=== PATIENT | male | born 1950 | race Caucasian/White ===

== ENCOUNTER → 2021-08-27 10:50 | Outpatient (CLI) | payer MEDICARE, OTHER, SELFPAY ==
[2021-08-27 11:44] LABS: BUN Creatinine Ratio 20.5 (6-22); Blood Urea Nitrogen 18 mg/dL (9-20); Estimated Glomerular Filt Rate > 60 mL/min (>60)
== END ==
DX: C61 Malignant neoplasm of prostate (principal)
CPT/HCPCS: 36415; 82565; 84520

== ENCOUNTER → 2021-08-30 09:29 | Outpatient (CLI) | payer MEDICARE, OTHER, SELFPAY ==
--- NOTE | 2021-08-30 | DI.CT.S_ITS ---
PROCEDURE: CT CHEST ABD PEL W CON INDICATIONS: PROSTATE CANCER TECHNIQUE: After the administration of oral and intravenous contrast, axial sections acquired from the supraclavicular neck to the pubic symphysis. Coronal and sagittal reformats were performed. For radiation dose reduction, the following was used: automated exposure control, adjustment of mA and/or kV according to patient size. COMPARISON: None. FINDINGS: Image quality: Excellent. CHEST: Lungs and pleura: No acute air space opacities. No pleural effusions or pneumothorax. Central and peripheral airways are patent and normal in caliber. In the left lower lobe there is a 3.5 x 3.7 cm cyst. Surrounding septal thickening consistent with scarring is seen. No pulmonary mass or nodules. Mediastinum: Heart size is normal. The coronary arteries have atherosclerotic calcifications. No pericardial effusion. No mediastinal adenopathy by size criteria. Thoracic aorta and central pulmonary arteries are normal in size. Esophagus is normal in caliber. No hiatal hernia. Chest wall: No axillary or supraclavicular adenopathy by size criteria. Thyroid gland demonstrates enlargement of the left thyroid lobe measuring 7.6 x 3.8 x 6.2 cm in which extends into the superior mediastinum. Both thyroid lobes have multiple small hypodensities. ABDOMEN: Solid organs: Liver: The liver has no mass or intrahepatic biliary ductal dilatation. The portal vein and hepatic veins are patent. Biliary: The gallbladder has a 8 mm gallstone. No wall thickening or pericholecystic fluid. Pancreas: The pancreas has no mass or ductal dilatation. There is no surrounding inflammation. Punctate calcifications of the entire pancreas are seen consistent with prior pancreatitis. Spleen: Normal size. There are no masses. Adrenals: No hypertrophy or nodules. Kidneys: No obstructive calculus or hydronephrosis. No solid mass. The right kidney has a 1.8 cm cyst in the midpole posteromedially. Bowel: The distal esophagus and stomach are normal. The small bowel has a normal caliber and appearance. The terminal ileum is normal. The large bowel has diverticulosis with no evidence of diverticulitis. The appendix is normal. No free fluid or air. Nodes and vessels: No retroperitoneal or mesenteric adenopathy by size criteria. The aorta has atherosclerosis with no aneurysmal dilatation. Abdominal wall: No abdominal wall mass or hernia. PELVIS: Genitourinary: The bladder has no wall thickening or mass. No bladder calcifications. There are metallic clips in the prostate bed consistent with prior prostatectomy. BONES: Degenerative changes with no focal abnormality. No vertebral body compression fractures. IMPRESSION: 1. No evidence of metastatic disease or adenopathy. 2. Left thyroid enlargement, likely goiter. Recommend thyroid ultrasound. 3. Cholelithiasis without evidence of cholecystitis. Dictated by: Jose Valentine M.D. on 08/30/2021 at 12:04 Approved by: Jose Valentine M.D. on 08/30/2021 at 12:15
== END ==
PROVIDERS: PCP Family Medicine
DX: C61 Malignant neoplasm of prostate (principal); K80.20 Calculus of gallbladder without cholecystitis without obstruction; E04.9 Nontoxic goiter, unspecified
CPT/HCPCS: 71260; 74177; Q9967

== ENCOUNTER → 2021-09-25 10:18 | Outpatient (CLI) | payer MEDICARE, OTHER, SELFPAY ==
--- NOTE | 2021-09-25 | DI.NM.S_ITS ---
PROCEDURE: NM BONE SCAN WHOLE BODY RADIOPHARMACEUTICAL: 20.2 mCi Tc-99m MDP IV. INDICATIONS: Malignant neoplasm of prostate TECHNIQUE: Delayed whole-body scintigrams were obtained approximately 3-4 hours after intravenous injection of radiotracer. Anterior and posterior views were acquired from vertex to feet. Additional left and right oblique views of the pelvis were obtained. COMPARISON: [facility], CT, CT CHEST ABD PEL W CON, 08/30/2021, 11:08. FINDINGS: There is increased uptake at the sternomanubrial junction, most likely degenerative in nature. No lesions are identified in skull, clavicles, scapulae, ribs, bony pelvis, and visualized shafts of the long bones. There is low level increased uptake in cervical, thoracic and lumbar spine with distribution indistinguishable from degenerative disc and facet disease; early metastasis to spine could be obscured by degenerative changes. There are foci of increased periarticular activity involving shoulders, sternoclavicular joints, left wrist, hips, SI joints, and both knees, left greater than right, compatible with degenerative/arthritic changes. There is a focal uptake in the area medial clavicular head just off the midline, correlating with enlarged left thyroid lobe. IMPRESSION: 1. No definitive scintigraphic findings to suggest osseous metastasis. 2. There is abnormal uptake in the area left side of the superior mediastinum, correlating with a large goiter involving the left thyroid lobe. Dictated by: Amara Trinidad M.D. on 09/25/2021 at 15:57 Approved by: Amara Trinidad M.D. on 09/25/2021 at 16:10
== END ==
PROVIDERS: PCP Family Medicine; Referring Provider Radiology Radiation Oncology; Visit Provider Radiology Radiation Oncology
DX: C61 Malignant neoplasm of prostate (principal); E04.9 Nontoxic goiter, unspecified
CPT/HCPCS: 78306; A9503